=== PATIENT | male | born 1975 | race Caucasian/White ===

== ENCOUNTER 2017-07-28 12:03 | Day surgery (SDC) | payer OTHER ==
[2017-07-28 12:22] VITALS: BMI 31.6
[2017-07-28] MEDS ORDERED: Propofol 10 mg/ml Inj (20 ML) ONE (13:08)
[2017-07-28] MEDS ORDERED: Lidocaine Hydrochloride 5 ML INJ ONE (13:08)
--- NOTE | 2017-07-28 13:38 | CP.SDSHP ---
Same Day Surgery H & P - History Proposed Procedure: COLONSCOPY Pre-Op Diagnosis: SEE NOTES - Previous Medical/Surgical History Pulmonary: Emphysema/COPD Misc: Other - Allergies Allergies: Allergies No Known Allergies Allergy (Verified 07/25/17 13:59) - Physical Exam General Appearance: N Vital Signs: Vital Signs 07/28/17 12:16 Temperature 96.2 F L Pulse Rate 62 Respiratory 18 Rate Blood Pressure 120/75 O2 Sat by Pulse 100 Oximetry Mental Status: Alert & Oriented x3 Neuro: WNL Heart: Other Lungs: Other GI: WNL - {Optional Preform as Required} Breast: WNL Abdomen: Other Rectal: Other Integument: WNL : WNL Ortho: WNL ENT: WNL - Impression Pt. Evaluated Today:Candidate for Anesthesia & Procedure: Yes - Date & Time Time: 13:38 Short Stay Discharge - Short Stay Discharge Admitting Diagnosis/Reason for Visit: CHANGE OF BOWEL HABITS Disposition: HOME/ ROUTINE
[2017-07-28 14:14] VITALS: TEMP 97.9
[2017-07-28 14:20] VITALS: O2SAT 96
[2017-07-28] MEDS ORDERED: Belladonna-Phenobarbital PO ONE (14:25)
[2017-07-28 14:49] VITALS: BP 110/74; PULSE 60; RESP 17
== END 2017-07-28 15:05 | disposition home or self-care (01) ==
LOC: C.ENDO 12:03
PROVIDERS: ATTEND Specialist
DX: K52.9 Noninfective gastroenteritis and colitis, unspecified (principal); R19.4 Change in bowel habit; K64.8 Other hemorrhoids
CPT/HCPCS: 45380; 88305; 88313; 88342; J2704; J3010

== ENCOUNTER 2017-09-16 06:32 | Day surgery (SDC) | payer OTHER ==
[2017-09-16 07:12] VITALS: TEMP 97
--- NOTE | 2017-09-16 08:51 | CP.SDSHP ---
Same Day Surgery H & P - History Proposed Procedure: EGD Pre-Op Diagnosis: SEE NOTES - Previous Medical/Surgical History Misc: Other Pain: 4.Moderate Pain - Allergies Allergies: Allergies No Known Allergies Allergy (Verified 09/16/17 06:51) - Physical Exam General Appearance: N Vital Signs: Vital Signs 09/16/17 09/16/17 06:59 07:23 Temperature 97 F L Pulse Rate 72 72 Respiratory 19 Rate Blood Pressure 128/76 O2 Sat by Pulse 99 Oximetry Mental Status: Alert & Oriented x3 Neuro: WNL Heart: WNL Lungs: WNL GI: Other - {Optional Preform as Required} Breast: WNL Abdomen: Other Rectal: Other Integument: WNL : WNL Ortho: WNL ENT: WNL - Impression Pt. Evaluated Today:Candidate for Anesthesia & Procedure: Yes - Date & Time Time: 08:50 Short Stay Discharge - Short Stay Discharge Admitting Diagnosis/Reason for Visit: FUNCTIONAL DYSPEPSIA Disposition: HOME/ ROUTINE
[2017-09-16] MEDS ORDERED: Propofol 10 mg/ml Inj (20 ML) ONE (08:55)
[2017-09-16] MEDS ORDERED: Belladonna-Phenobarbital PO ONE (09:35)
[2017-09-16 10:05] VITALS: BP 104/58; PULSE 58; RESP 14; O2SAT 96
== END 2017-09-16 10:02 | disposition home or self-care (01) ==
LOC: C.ENDO 06:32
PROVIDERS: ATTEND Specialist
DX: K21.0 Gastro-esophageal reflux disease with esophagitis (principal); K30 Functional dyspepsia; K44.9 Diaphragmatic hernia without obstruction or gangrene
CPT/HCPCS: 43235; J2001; J2704; J2765

== ENCOUNTER 2017-09-23 08:41 | Day surgery (SDC) | payer OTHER ==
[2017-09-23] MEDS ORDERED: Lactated Ringer's 1,000 ML IV ONE ×2 (11:00)
[2017-09-23] MEDS ORDERED: Lactated Ringer's 500 ML IV SCH (11:00)
[2017-09-23] MEDS ORDERED: Propofol 10 mg/ml Inj (20 ML) ONE (11:03)
--- NOTE | 2017-09-23 11:05 | CP.SDSHP ---
Same Day Surgery H & P - History Proposed Procedure: EGD Pre-Op Diagnosis: SEE NOTES - Previous Medical/Surgical History Misc: Other Pain: 4.Moderate Pain - Allergies Allergies: Allergies No Known Allergies Allergy (Verified 09/23/17 09:01) - Physical Exam General Appearance: N Vital Signs: Vital Signs 09/23/17 09:02 Temperature 97.2 F L Pulse Rate 65 Respiratory 19 Rate Blood Pressure 110/74 O2 Sat by Pulse 97 Oximetry Mental Status: Alert & Oriented x3 Neuro: WNL Heart: WNL Lungs: WNL GI: Other - {Optional Preform as Required} Breast: WNL Abdomen: Other Rectal: Other Integument: WNL : WNL Ortho: WNL ENT: WNL - Impression Pt. Evaluated Today:Candidate for Anesthesia & Procedure: Yes - Date & Time Time: 11:06 Short Stay Discharge - Short Stay Discharge Admitting Diagnosis/Reason for Visit: DYSPEPSIA Disposition: HOME/ ROUTINE
[2017-09-23] MEDS ORDERED: Belladonna-Phenobarbital PO ONE (11:35)
[2017-09-23 12:13] VITALS: TEMP 97.4
[2017-09-23 12:15] VITALS: O2SAT 100
[2017-09-23 12:18] VITALS: BP 119/81; PULSE 64; RESP 13
== END 2017-09-23 12:12 | disposition home or self-care (01) ==
LOC: C.ENDO 08:41
PROVIDERS: ATTEND Specialist
DX: K25.9 Gastric ulcer, unspecified as acute or chronic, without hemorrhage or perforation (principal); K31.9 Disease of stomach and duodenum, unspecified; R13.10 Dysphagia, unspecified; K30 Functional dyspepsia; R11.0 Nausea; K44.9 Diaphragmatic hernia without obstruction or gangrene
CPT/HCPCS: 43239; 88305; 88342; J2704; J2765; J7120